=== PATIENT | female | born 1975 | race Caucasian/White ===

== ENCOUNTER → 2017-11-12 00:19 | Outpatient (CLI) | payer BC, SELFPAY ==
--- NOTE | 2017-11-12 13:44 | DI.REPORT_ITS ---
SYMPTOMS/DIAGNOSIS: BREAST CANCER SCREENING, Z12.31 BILATERAL SCREENING MAMMOGRAM: Mammograms were interpreted according to the usual protocol including computer analysis with CAD system, tomosynthesis and C view imaging. Comparison is made with 2014. The breasts are composed of heterogeneously dense fibroglandular tissue, breast density category C. No suspicious masses or suspicious microcalcifications are seen. There has been no significant change. IMPRESSION: Category 1C, negative mammogram. Routine screening is recommended. [facility] ASSESSMENT OF FINDINGS: Negative. Category 1. Patient will receive a letter notifying them of these results. Bi-RADS category C. The breasts are heterogeneously dense, which may obscure small masses.
== END ==
PROVIDERS: PCP Internal Medicine; Visit Provider Nurse Practitioner Family
DX: Z12.31 Encounter for screening mammogram for malignant neoplasm of breast (principal)
CPT/HCPCS: 77063; 77067

== ENCOUNTER 2018-11-11 12:57 | Outpatient (REF) | payer BC, SELFPAY ==
--- NOTE | 2018-11-11 08:45 | PAPFT_PTH ---
PATIENT: Louisa Parson LOC: [facility] U#:[id number] AGE/SX: 43/F ROOM: RE11/11/[address]: MICHELLE Win : 1975 BED: DIS: 11/11/2018 SPEC #: [id number] RECD: 11/11/18 13:12 STATUS: NICOLE BELLAMY #: [id number] TI: 11/11/18 08:[address]: Theodora Valdez DEPT: [facility] Cytology RECD BY: Ping Carson ENTERED: 11/11/18 13:13 SP TYPE: PAPFT OTHR DR: Piper Roper Tissues: 1 - CX/ENDOCX FOR PAP SMEARS Procedures: PAP THIN PREP/[facility] Screening HPV DNA PROBE Comments: [id number]
== END 2018-11-11 13:17 ==
LOC: LBN 12:57
PROVIDERS: PCP Internal Medicine; Visit Provider Nurse Practitioner Family
DX: Z12.4 Encounter for screening for malignant neoplasm of cervix (principal); Z11.51 Encounter for screening for human papillomavirus (HPV)
CPT/HCPCS: 88142; 87624

== ENCOUNTER 2018-11-15 00:52 | Outpatient (CLI) | payer BC, SELFPAY ==
--- NOTE | 2018-11-15 12:50 | DI.US_ITS ---
SYMPTOM/DIAGNOSIS: ABNL VAGINAL BLEEDING, N93.9 PELVIC ULTRASOUND: Transabdominal and transvaginal exams were performed. The transabdominal images are limited by lack of bladder distension. The uterus measures 9.1 by 4.3 by 4.6 cm. No fibroids are seen. The endometrial stripe measures 9 mm. in thickness. No focal endometrial abnormalities are seen. The ovaries were suboptimally visualized. No cysts or masses are seen. There is no free fluid. IMPRESSION: Somewhat limited exam. The ovaries are poorly seen.
== END 2018-11-15 01:12 ==
PROVIDERS: PCP Internal Medicine; Visit Provider Nurse Practitioner Family
DX: N93.9 Abnormal uterine and vaginal bleeding, unspecified (principal)
CPT/HCPCS: 76830; 76856

== ENCOUNTER 2019-12-26 01:19 | Outpatient (CLI) | payer BC, SELFPAY ==
--- NOTE | 2019-12-26 15:30 | DI.MAMMO_ITS ---
EXAM: MG MAMMO SCREENING CLINICAL HISTORY: screening TECHNIQUE: Mammograms were interpreted according to the usual protocol including computer analysis w [employer] CAD system, tomosynthesis and C-view imaging. COMPARISON: FINDINGS: The breasts are of moderate density with fairly symmetrical distribution of fibroglandular tissue. N o dominant mass or clumped microcalcification is identified in either breast. The current examinatio n is compared with prior studies including November 2017 and there has been no gross interval change in appearance In comparison with the prior studies. IMPRESSION: No specific evidence of malignancy at this time. Routine screening examinations are suggested at yea rly intervals in this age group according to the ACS ACR guidelines. BI-RADS Category 1 - Negative Breast Density - Category B - Scattered areas of fibroglandular density
== END 2019-12-26 01:39 ==
PROVIDERS: PCP Internal Medicine; Visit Provider Nurse Practitioner Family
DX: Z12.31 Encounter for screening mammogram for malignant neoplasm of breast (principal)
CPT/HCPCS: 77063; 77067

== ENCOUNTER 2021-09-13 10:37 | Outpatient (REF) | payer BC, SELFPAY ==
--- NOTE | 2021-09-13 10:10 | PAPFT_PTH ---
PATIENT: Louisa Parson LOC: [facility] U#:[id number] AGE/SX: 46/F ROOM: RE09/13/[address]: MICHELLE Win : 1975 BED: DIS: 09/13/2021 SPEC #: [id number] RECD: 09/13/21 12:51 STATUS: NICOLE REAnnetta #: [id number] TI: 09/13/21 10:[address]: Theodora Valdez DEPT: [facility] Cytology RECD BY: Ping Carson ENTERED: 09/13/21 12:51 SP TYPE: PAPFT OTHR DR: Piper Roper Tissues: 1 - CX/ENDOCX FOR PAP SMEARS Procedures: PAP THIN PREP/[facility] Screening HPV DNA PROBE Comments: [id number]
== END 2021-09-13 10:38 | disposition home or self-care (01) ==
LOC: LBN 10:37
PROVIDERS: PCP Internal Medicine; Visit Provider Nurse Practitioner Family
DX: Z12.4 Encounter for screening for malignant neoplasm of cervix (principal); Z11.51 Encounter for screening for human papillomavirus (HPV)
CPT/HCPCS: 88142; 87624

== ENCOUNTER → 2021-11-08 00:04 | Outpatient (CLI) | payer OTHER, SELFPAY ==
--- NOTE | 2021-11-08 12:06 | DI.MAMMO_ITS ---
Exam(s) MAMMO SCREENING EXAM: MAMMO SCREENING CLINICAL HISTORY: screening TECHNIQUE: Bilateral full field digital CC and MLO mammographic images were obtained with 3D tomosyn thesis and utilizing computer aided detection (CAD). COMPARISON: Available for comparison. FINDINGS: Masses/Architectural Distortion: None seen. Microcalcifications: No suspicious pleomorphic-type are seen. Skin Thickening/Nipple Retraction: None. IMPRESSION: 1. No significant interval change with no specific features of malignancy noted. 2. Unless there is more urgent need, screening mammography is recommended, as per [employer] guidelines. BI-RADS Category 1 - Negative Breast Density - Category B - Scattered areas of fibroglandular density Breast density category C or D implies that the patient has dense breast tissue. Dense breast tissue is very common and is not abnormal but dense breast tissue can make it harder to find cancer on a ma mmogram. Also, dense breast tissue may increase their breast cancer risk. This information about the result of the mammogram report was provided to the patient to raise their awareness. Use this report when you speak with the patient about their risks for breast cancer, which includes their family hist ory. At that time, you may recommend for more screening tests (Ultrasound or MRI) as they might be us eful based on their risk. A negative radiographic report should not delay biopsy if a dominant or clinically suspicious mass is present. Up to ten percent of cancers are not identified on mammography. A negative report may reinforce clinical impression. Adenosis and dense breasts may obscure an underlying neoplasm. False positive reports average 6 to 10%. Patient will receive a letter notifying them of these results.
== END ==
PROVIDERS: PCP Internal Medicine; Visit Provider Nurse Practitioner Family
DX: Z12.31 Encounter for screening mammogram for malignant neoplasm of breast (principal); R92.8 Other abnormal and inconclusive findings on diagnostic imaging of breast
CPT/HCPCS: 77063; 77067